=== PATIENT | female | born 1985 | race American Indian/Alaskan Native ===

== ENCOUNTER 2016-08-10 23:45 | Emergency (ER) | payer OTHER ==
[2016-08-11] MEDS ORDERED: MOTRIN PO ONE (03:17)
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
[2016-08-11 04:17] VITALS: BP 108/70
== END 2016-08-11 04:21 | disposition home or self-care (01) ==
LOC: ED 23:45
DX: M79.1 Myalgia (principal); V49.9XXA Car occupant (driver) (passenger) injured in unspecified traffic accident, initial encounter; Y93.89 Activity, other specified; Y99.9 Unspecified external cause status; Y92.410 Unspecified street and highway as the place of occurrence of the external cause
CPT/HCPCS: 99282

== ENCOUNTER 2018-02-24 01:32 | Emergency (ER) | payer SELFPAY | END 2018-02-24 01:33 | disposition left against medical advice (07) | LOC: ED 01:32 | DX: R51 Headache (principal); Z53.21 Procedure and treatment not carried out due to patient leaving prior to being seen by health care provider ==